=== PATIENT | female | born 2000 | race Two or more races ===

== ENCOUNTER 2021-11-01 14:39 | Emergency (ER) | payer SELFPAY ==
[~2021-11-01] VITALS: Ht 170.2 cm; Wt 55.5 kg
[2021-11-01 16:29] LABS: Basophils # (auto) 0 10 ^3/uL (0-0.2); Basophils % (auto) 0.3 % (0.0-2.0); Eosinophils # (auto) 0.2 10 ^3/uL (0-0.8); Hematocrit 38.2 % (36.0-46.0); Hemoglobin 12.7 g/dL (12.2-16.2); Lymphocytes # (auto) 2.6 10 ^3/uL (0.4-5.4); Lymphocytes % (auto) 27.8 % (10.0-50.0); Mean Corpuscular Hemoglobin 29.5 pg (28.0-32.0); Mean Corpuscular Hgb Conc. 33.3 g/dL (32.0-36.0); Mean Corpuscular Volume 88.6 fL (80.0-100.0); Monocytes # (auto) 0.5 10 ^3/uL (0-1.3); Monocytes % (auto) 4.9 % (0.0-12.0); Red Blood Cells 4.31 10^6/uL (4.0-5.20); Red Cell Distribution Width 14.2 % (11.8-14.3); White Blood Cell 9.2 10^3/uL (4.4-10.8)
[2021-11-01 19:08] VITALS: BP 121/74
== END 2021-11-01 19:11 | disposition home or self-care (01) ==
LOC: ER 14:39
DX: O20.0 Threatened abortion (principal); Z3A.10 10 weeks gestation of pregnancy
CPT/HCPCS: 36415; 76801; 84702; 85025

== ENCOUNTER 2022-04-20 19:00 | Observation (INO) | payer SELFPAY ==
[2022-04-20 20:44] LABS: Urine Bacteria FEW /hpf (None Seen); Urine Blood Negative /uL (Negative); Urine Specific Gravity 1.019 (1.001-1.035); Urine WBC 12 /hpf (0 - 5)
[2022-04-20 20:52] LABS: Basophils # (auto) 0 10 ^3/uL (0-0.2); Eosinophils # (auto) 0.2 10 ^3/uL (0-0.8); Hematocrit 27.4 % (36.0-46.0); Lymphocytes # (auto) 2.6 10 ^3/uL (0.4-5.4); Monocytes # (auto) 0.5 10 ^3/uL (0-1.3); Neutrophils # (auto) 5.4 10 ^3/uL (1.6-8.6); Red Blood Cells 3.46 10^6/uL (4.0-5.20); Red Cell Distribution Width 14.2 % (11.8-14.3); White Blood Cell 8.7 10^3/uL (4.4-10.8)
[2022-04-20 20:53] LABS: Basophils % (auto) 0.4 % (0.0-2.0); Eosinophils % (auto) 2.4 % (0.0-7.0); Hemoglobin 9.4 g/dL (12.2-16.2); Lymphocytes % (auto) 29.4 % (10.0-50.0); Mean Corpuscular Hemoglobin 27.1 pg (28.0-32.0); Mean Corpuscular Hgb Conc. 34.2 g/dL (32.0-36.0); Mean Corpuscular Volume 79.4 fL (80.0-100.0); Monocytes % (auto) 6.2 % (0.0-12.0); Neutrophils % (auto) 61.6 % (37.0-80.0)
[2022-04-20 20:55] LABS: Cannabinoid Screen, Urine NEGATIVE (NEGATIVE)
[2022-04-20 20:57] LABS: Amphetamine Screen, Urine NEGATIVE (NEGATIVE); Barbiturate Scree,Urine NEGATIVE (NEGATIVE); Benzodiazephine Screen, Urine NEGATIVE (NEGATIVE); Cocaine Screen, Urine NEGATIVE (NEGATIVE); Opiate Scree,Urine NEGATIVE (NEGATIVE); Phencyclidine Screen, Urine NEGATIVE (NEGATIVE)
[2022-04-20 21:06] LABS: Albumin 2.5 g/dL (3.4-5.0); BUN/Creatinine Ratio 10.4; Calcium 8.4 mg/dL (8.5-10.1); Potassium 3.4 mmol/L (3.5-5.1)
[2022-04-20 21:11] LABS: Bilirubin, Total 0.4 mg/dL (0.2-1.0); Total Protein 6.2 g/dL (6.4-8.2)
[2022-04-20] MEDS ORDERED: IRON150T2 PO (21:12)
[2022-04-20] MEDS ORDERED: PREN-96 PO (21:13)
[2022-04-20 21:14] LABS: INR 0.96 (0.9-1.15); Partial Thromboplastin Time 25.4 sec (23.6-33.0)
[2022-04-22 07:06] LABS: RPR Non Reactive (Non Reactive)
[2022-04-22 08:06] LABS: Rubella Antibodies, IgG 1.08 index (Immune >0.99)
== END 2022-04-20 22:49 | disposition home or self-care (01) ==
LOC: EDUNIT# 19:00 → LDRP 19:00
PROVIDERS: ADMIT Obstetrics & Gynecology; ATTEND Obstetrics & Gynecology
DX: O23.43 Unspecified infection of urinary tract in pregnancy, third trimester (principal); O62.9 Abnormality of forces of labor, unspecified; Z3A.37 37 weeks gestation of pregnancy
CPT/HCPCS: 36415; 59025; 76805; 80053; 80307; 81001; 81002; 85025; 85610; 85730; 86592; 86703; 86762; 86850; 86900; 86901; 87340; 87491; 87591; 94760; G0378

== ENCOUNTER 2022-04-25 18:23 | Observation (INO) | payer SELFPAY ==
[~2022-04-25] VITALS: Ht 170.2 cm; Wt 90.7 kg
[~2022-04-25 18:23] MED LIST: IRON150T2 PO; PREN-96 PO
== END 2022-04-25 21:59 | disposition home or self-care (01) ==
LOC: LDRP 18:23
PROVIDERS: ADMIT Obstetrics & Gynecology; ATTEND Obstetrics & Gynecology
DX: O99.513 Diseases of the respiratory system complicating pregnancy, third trimester (principal); Z20.822 Contact with and (suspected) exposure to COVID-19; J02.9 Acute pharyngitis, unspecified; O62.9 Abnormality of forces of labor, unspecified; O26.893 Other specified pregnancy related conditions, third trimester; R50.9 Fever, unspecified; Z3A.35 35 weeks gestation of pregnancy
CPT/HCPCS: 36415; 59025; 81002; 87426; 94760; G0378; U0003

== ENCOUNTER 2022-05-09 22:24 | Inpatient (IN) | payer MEDICAID ==
[~2022-05-09] VITALS: Ht 170.2 cm; Wt 56.7 kg
[2022-05-09] MEDS ORDERED: DERMOPLAST 60ML BOTTLE TOP PRN (23:15)
[2022-05-09] MEDS ORDERED: LIDOCAINE 2%HCL (LOCAL ANESTH.) INJ 10ml MDV IJ PRN (23:15)
[2022-05-09] MEDS ORDERED: PENICILLIN G POT 5MIL/D5 50ML 50 ML IV ONE (23:15)
[2022-05-09] MEDS ORDERED: PROMETHAZINE HCL 25 MG/ML 1ML IV PRN (23:15)
[2022-05-09] MEDS ORDERED: PHISODERM TOP SOLN 240ML BTL TOP PRN (23:15)
[2022-05-09] MEDS ORDERED: WITCH HAZEL-GLYCERIN PAD TOP PRN (23:15)
[2022-05-09] MEDS ORDERED: LACTATED RINGER'S 1,000 ML IV SCH (23:15)
[2022-05-09] MEDS ORDERED: BUTORPHANOL TARTRATE 2 MG/1 ML VIAL IV PRN ×2 (23:15)
[2022-05-10 00:06] LABS: Basophils # (auto) 0 10 ^3/uL (0-0.2); Eosinophils # (auto) 0 10 ^3/uL (0-0.8); Hematocrit 31.3 % (36.0-46.0); Mean Corpuscular Volume 78.9 fL (80.0-100.0); Monocytes # (auto) 0.6 10 ^3/uL (0-1.3); Neutrophils # (auto) 6.9 10 ^3/uL (1.6-8.6); Red Blood Cells 3.97 10^6/uL (4.0-5.20)
[2022-05-10 00:10] LABS: Basophils % (auto) 0.1 % (0.0-2.0); Eosinophils % (auto) 0.4 % (0.0-7.0); Hemoglobin 10.2 g/dL (12.2-16.2); Lymphocytes # (auto) 2.8 10 ^3/uL (0.4-5.4); Lymphocytes % (auto) 27.4 % (10.0-50.0); Mean Corpuscular Hemoglobin 25.8 pg (28.0-32.0); Mean Corpuscular Hgb Conc. 32.7 g/dL (32.0-36.0); Monocytes % (auto) 5.6 % (0.0-12.0); Neutrophils % (auto) 66.5 % (37.0-80.0); Red Cell Distribution Width 15.3 % (11.8-14.3); White Blood Cell 10.4 10^3/uL (4.4-10.8)
[2022-05-10] MEDS ORDERED: LACT. RINGERS/OXYTOCIN 20UNITS 1,000 ML IV ONE (00:13)
[2022-05-10 00:14] LABS: Albumin 2.5 g/dL (3.4-5.0); Calcium 8.6 mg/dL (8.5-10.1); INR 0.94 (0.9-1.15); Partial Thromboplastin Time 26.8 sec (23.6-33.0); Potassium 3.5 mmol/L (3.5-5.1)
[2022-05-10 00:16] LABS: BUN/Creatinine Ratio 7.4
[2022-05-10 00:18] LABS: Bilirubin, Total 0.4 mg/dL (0.2-1.0); Total Protein 7.6 g/dL (6.4-8.2)
[2022-05-10] MEDS ORDERED: LACT. RINGERS/OXYTOCIN 20UNITS 500 ML IV ONE ×2 (00:30)
[2022-05-10 00:36] LABS: Urine Bacteria MANY /hpf (None Seen); Urine Blood Negative /uL (Negative); Urine WBC 19 /hpf (0 - 5)
[2022-05-10 00:47] LABS: Alcohol, Urine < 3.0 mg/dL (0-10); Amphetamine Screen, Urine NEGATIVE (NEGATIVE); Barbiturate Scree,Urine NEGATIVE (NEGATIVE); Benzodiazephine Screen, Urine NEGATIVE (NEGATIVE); Cannabinoid Screen, Urine NEGATIVE (NEGATIVE); Cocaine Screen, Urine NEGATIVE (NEGATIVE); Opiate Scree,Urine NEGATIVE (NEGATIVE); Phencyclidine Screen, Urine NEGATIVE (NEGATIVE)
[2022-05-10] MEDS ORDERED: miSOPROStol 50 MCG per PRE-CUT 1/2 TAB SL ONE (01:45)
[2022-05-10] MEDS ORDERED: METHYLERGONOVINE MALEATE 0.2 MG/ML AMP IM ONE (01:45)
[2022-05-10] MEDS ORDERED: miSOPROStol 100 mcg TAB ONE (01:51)
[2022-05-10] MEDS ORDERED: ACETAMINOPHEN 325 MG TAB PO PRN (02:15)
[2022-05-10 02:30] VITALS: BP 119/72
[2022-05-10] MEDS ORDERED: PENICILLIN G POTASSIUM 2,500,000 UNITS in D5W 5% 50 ML IV SCH (03:15)
[2022-05-10] MEDS: IBUPROFEN 600 MG TAB PO PRN (04:15)
[2022-05-10 07:09] VITALS: BP 122/66
[2022-05-10 11:00] VITALS: BP 122/66
[2022-05-10 15:00] VITALS: BP 117/67
[2022-05-10 23:00] VITALS: BP 112/67
[2022-05-11] MEDS: IBUPROFEN 600 MG TAB PO PRN ×2 (00:25→09:10)
[2022-05-11 03:15] VITALS: BP 110/72
[2022-05-11 07:00] VITALS: BP 112/69
[2022-05-11 07:11] LABS: RPR Non Reactive (Non Reactive)
[2022-05-11] MEDS ORDERED: TETANUS-DIPTH-ACEL PERTUSSIS 0.5ML SYR Tdap IM ONE (09:00)
== END 2022-05-11 14:24 | disposition home or self-care (01) | DRG 560 ==
LOC: LDRP 22:24 → OBSVTOIN 22:39 → LDRP 05-10 02:50
PROVIDERS: ADMIT Obstetrics & Gynecology; ATTEND Obstetrics & Gynecology
PROC: 10E0XZZ Delivery of Products of Conception, External Approach (ICD-10-PCS; principal; 2022-05-10)
PROC: 0KQM0ZZ Repair Perineum Muscle, Open Approach (ICD-10-PCS; 2022-05-10)
PROC: 3E0R3BZ Introduction of Anesthetic Agent into Spinal Canal, Percutaneous Approach (ICD-10-PCS; 2022-05-10)
PROC: 00HU33Z Insertion of Infusion Device into Spinal Canal, Percutaneous Approach (ICD-10-PCS; 2022-05-10)
DX: O71.4 Obstetric high vaginal laceration alone (principal); Z37.0 Single live birth; Z20.822 Contact with and (suspected) exposure to COVID-19; Z3A.37 37 weeks gestation of pregnancy
CPT/HCPCS: 36415; 59025; 59409; 80053; 80307; 81001; 81002; 85025; 85610; 85730; 86592; 86850; 86900; 86901; 90715; 94760; 96360; 96361; 96365; 96366; G0378; J2001; J2540; J2590; J7060